=== PATIENT | male | born 2000 | race Two or more races ===

== ENCOUNTER 2023-09-03 00:25 | Inpatient (IN) | payer MEDICAID, OTHER ==
[~2023-09-03] VITALS: Ht 182.9 cm; Wt 98.0 kg
[2023-09-03 01:34] LABS: Basophils # (auto) 0 10 ^3/uL (0-0.2); Basophils % (auto) 0.2 % (0.0-2.0); Eosinophils # (auto) 0 10 ^3/uL (0-0.8); Hematocrit 44.3 % (41.0-53.0); Lymphocytes # (auto) 1.1 10 ^3/uL (0.4-5.4); Lymphocytes % (auto) 7.5 % (10.0-50.0); Mean Corpuscular Hemoglobin 29.8 pg (28.0-32.0); Mean Corpuscular Volume 87.7 fL (80.0-100.0); Monocytes # (auto) 0.1 10 ^3/uL (0-1.3); Monocytes % (auto) 0.9 % (0.0-12.0); Neutrophils # (auto) 12.9 10 ^3/uL (1.6-8.6); Neutrophils % (auto) 91.4 % (37.0-80.0); Red Blood Cells 5.05 10^6/uL (4.5-5.90); Red Cell Distribution Width 13.2 % (11.8-14.3); White Blood Cell 14.1 10^3/uL (4.4-10.8)
[2023-09-03 01:46] LABS: Chloride 107 mmol/L (98-107); Potassium 3.1 mmol/L (3.5-5.1); Sodium 139 mmol/L (136-145)
[2023-09-03 01:47] LABS: Anion Gap 11 (5-15); Carbon Dioxide 21 mmol/L (20-30)
[2023-09-03 01:48] LABS: Calcium 10.2 mg/dL (8.5-10.1)
[2023-09-03 01:52] LABS: BUN/Creatinine Ratio 11.3 (10.0-20.0); Blood Urea Nitrogen 11 mg/dL (9-23); Glucose 141 mg/dL (74-106)
[2023-09-03 01:53] LABS: Blood Alcohol < 3.0 mg/dL (<10)
[2023-09-03] MEDS: POTASSIUM CHL 20 Meq TABLET PO ONE (03:02)
[2023-09-03] MEDS: ONDANSETRON HCL 4 MG/2 ML VIAL IV ONE (03:22)
[2023-09-03 03:32] LABS: Urine Bacteria None Seen /hpf (None Seen)
[2023-09-03 03:37] LABS: Urine Blood Negative /uL (Negative); Urine Clarity Turbid (Clear); Urine Color Yellow (Yellow); Urine Mucus FEW (None Seen); Urine Protein, UAD 1+ (Negative); Urine Specific Gravity 1.033 (1.001-1.035); Urine Urobilinogen Normal (Negative); Urine WBC 1 /hpf (0 - 3)
[2023-09-03 03:45] LABS: Amphetamine Screen, Urine Neg (NEGATIVE); Barbiturate Scree,Urine Neg (NEGATIVE); Benzodiazephine Screen, Urine Neg (NEGATIVE); Cannabinoid Screen, Urine Neg (NEGATIVE); Cocaine Screen, Urine Neg (NEGATIVE); Opiate Scree,Urine Neg (NEGATIVE); Phencyclidine Screen, Urine Neg (NEGATIVE)
[2023-09-03] MEDS ORDERED: DOCUSATE SOD 100 MG CAP PO PRN (05:00)
[2023-09-03] MEDS ORDERED: NITROGLYCERIN 0.4 MG SL TAB SL PRN (05:00)
[2023-09-03] MEDS ORDERED: HYDROcodone-ACET 5/325MG TAB PO PRN (05:00)
[2023-09-03] MEDS ORDERED: ONDANSETRON HCL 4 MG/2 ML VIAL IV PRN (05:00)
[2023-09-03] MEDS ORDERED: MORPHINE SULFATE INJ 2 MG/ml SYRG IV PRN ×2 (05:00)
[2023-09-03 05:33] LABS: Basophils # (auto) 0 10 ^3/uL (0-0.2); Basophils % (auto) 0.1 % (0.0-2.0); Eosinophils # (auto) 0 10 ^3/uL (0-0.8); Hemoglobin 15.3 g/dL (13.5-17.5); Lymphocytes # (auto) 0.6 10 ^3/uL (0.4-5.4); Lymphocytes % (auto) 4.5 % (10.0-50.0); Mean Corpuscular Hemoglobin 29.9 pg (28.0-32.0); Mean Corpuscular Volume 87.8 fL (80.0-100.0); Monocytes # (auto) 0.2 10 ^3/uL (0-1.3); Monocytes % (auto) 1.4 % (0.0-12.0); Neutrophils # (auto) 13.1 10 ^3/uL (1.6-8.6); Red Blood Cells 5.12 10^6/uL (4.5-5.90); Red Cell Distribution Width 13.1 % (11.8-14.3); White Blood Cell 13.9 10^3/uL (4.4-10.8)
[2023-09-03 05:44] LABS: Chloride 107 mmol/L (98-107); Potassium 3.8 mmol/L (3.5-5.1); Sodium 139 mmol/L (136-145)
[2023-09-03 05:45] LABS: Anion Gap 6 (5-15); Calcium 9.9 mg/dL (8.5-10.1); Carbon Dioxide 26 mmol/L (20-30)
[2023-09-03 05:50] LABS: Blood Urea Nitrogen 10 mg/dL (9-23); Glucose 138 mg/dL (74-106)
[2023-09-03] MEDS: cefTRIAXone 1GM/50ML D5W 50 ML IV ONE (06:00)
[2023-09-03] MEDS: SODIUM CHLORIDE 0.9% 1,000 ML IV SCH (06:53)
[2023-09-03 07:30] VITALS: PULSE 73; RESP 18; O2SAT 97
[2023-09-03] MEDS: ACETAMINOPHEN 325 MG TAB PO PRN (11:16)
[2023-09-03 11:45] LABS: Triglycerides 33 mg/dL (< 150)
[2023-09-03 11:46] LABS: LDL Cholesterol 77 mg/dL (< 100)
[2023-09-03 11:47] LABS: HDL Cholesterol 40 mg/dL (40-59)
[2023-09-03 11:48] LABS: Cholesterol 121 mg/dL (< 200)
[2023-09-03 12:48] LABS: COVID19 ANTIGEN SOFIA FIA NEGATIVE (NEGATIVE)
[2023-09-03 13:17] LABS: Alanine Aminotransferase 10 U/L (7-40); Albumin 4.5 g/dL (3.2-4.8); Alkaline Phosphatase 64 U/L (46-116); Anion Gap 5 (5-15); Aspartate Aminotransferase 9 U/L (13-40); BUN/Creatinine Ratio 9.4 (10.0-20.0); Bilirubin, Total 0.9 mg/dL (0.2-1.0); Blood Urea Nitrogen 9 mg/dL (9-23); Calcium 9.6 mg/dL (8.5-10.1); Carbon Dioxide 27 mmol/L (20-30); Chloride 109 mmol/L (98-107); Glucose 103 mg/dL (74-106); Potassium 3.7 mmol/L (3.5-5.1); Sodium 141 mmol/L (136-145)
[2023-09-03 17:24] VITALS: PULSE 69; RESP 17; TEMP 97.9; O2SAT 99
[2023-09-03 20:00] VITALS: RESP 15
[2023-09-03 21:00] VITALS: BP 122/67; PULSE 78; RESP 20; TEMP 98.2; O2SAT 96
[2023-09-04 01:00] VITALS: BP 119/57; PULSE 64; RESP 20; TEMP 98.1; O2SAT 100
[2023-09-04 05:00] VITALS: BP 113/59; PULSE 54; RESP 20; TEMP 98.2; O2SAT 100
[2023-09-04 06:12] LABS: Basophils # (auto) 0 10 ^3/uL (0-0.2); Basophils % (auto) 0.6 % (0.0-2.0); Eosinophils # (auto) 0.1 10 ^3/uL (0-0.8); Hematocrit 43.1 % (41.0-53.0); Hemoglobin 14.6 g/dL (13.5-17.5); Lymphocytes # (auto) 3.6 10 ^3/uL (0.4-5.4); Lymphocytes % (auto) 43.5 % (10.0-50.0); Mean Corpuscular Hemoglobin 30.1 pg (28.0-32.0); Mean Corpuscular Hgb Conc. 33.8 g/dL (32.0-36.0); Mean Corpuscular Volume 88.8 fL (80.0-100.0); Monocytes # (auto) 0.4 10 ^3/uL (0-1.3); Monocytes % (auto) 5.2 % (0.0-12.0); Neutrophils # (auto) 4.2 10 ^3/uL (1.6-8.6); Neutrophils % (auto) 49.7 % (37.0-80.0); Nucleated Red Blood Cells % 0.1 %; Red Blood Cells 4.86 10^6/uL (4.5-5.90); Red Cell Distribution Width 13.6 % (11.8-14.3); White Blood Cell 8.4 10^3/uL (4.4-10.8)
[2023-09-04 06:35] LABS: Alanine Aminotransferase < 9 U/L (7-40); Albumin 4.5 g/dL (3.2-4.8); Alkaline Phosphatase 67 U/L (46-116); Anion Gap 8 (5-15); Aspartate Aminotransferase 10 U/L (13-40); BUN/Creatinine Ratio 11.5 (10.0-20.0); Bilirubin, Total 0.8 mg/dL (0.2-1.0); Blood Urea Nitrogen 9 mg/dL (9-23); Calcium 9.6 mg/dL (8.5-10.1); Carbon Dioxide 24 mmol/L (20-30); Chloride 108 mmol/L (98-107); Glucose 91 mg/dL (74-106); Sodium 140 mmol/L (136-145); Total Protein 7.1 g/dL (5.7-8.2)
[2023-09-04 08:00] VITALS: RESP 16
[2023-09-04 08:50] VITALS: BP 122/66; PULSE 60; RESP 18; TEMP 98.3; O2SAT 98
[2023-09-04] MEDS ORDERED: cefTRIAXone 1GM/50ML D5W 50 ML IV SCH (09:00)
[2023-09-04 11:27] VITALS: BP 122/66; PULSE 60; RESP 18; TEMP 98.3; O2SAT 98
[2023-09-04 12:40] VITALS: BP 111/58; PULSE 61; RESP 18; TEMP 98.3; O2SAT 98
[2023-09-04] MEDS ORDERED: ERGO1CAP23 PO (14:04)
[2023-09-05 08:06] LABS: RPR Non Reactive (Non Reactive)
== END 2023-09-04 16:30 | disposition home or self-care (01) | DRG 422 ==
LOC: ER 00:25 → OVERFLOW 04:56 → CENTRAL 14:42
PROVIDERS: ADMIT Internal Medicine; ATTEND Emergency Medicine
DX: E86.0 Dehydration (principal); I63.9 Cerebral infarction, unspecified; G93.41 Metabolic encephalopathy; D72.829 Elevated white blood cell count, unspecified; E87.6 Hypokalemia; E83.52 Hypercalcemia; R73.9 Hyperglycemia, unspecified; R47.81 Slurred speech; Z20.822 Contact with and (suspected) exposure to COVID-19
CPT/HCPCS: 36415; 70450; 80048; 80053; 80061; 80307; 80320; 81001; 82306; 82962; 83036; 83970; 84439; 84443; 85025; 86592; 86703; 87040; 87426; 93886; 96374; G0378; J2405